=== PATIENT | female | born 1990 | race Hispanic/Latino ===

== ENCOUNTER 2024-08-23 11:08 | Emergency (ER) | payer SELFPAY ==
[~2024-08-23] VITALS: Ht 152.4 cm; Wt 72.0 kg
[2024-08-23] VITALS (8 sets, daily range): BP systolic 95–148; BP diastolic 55–73
[2024-08-23 11:45] LABS: BASO% 0.4 % (0-3); EOS% 1.2 % (0-8); HEMATOCRIT 36.1 % (37.0-47.0); HEMOGLOBIN 12.1 g/dl (12.0-16.0); IMMATURE GRANULOCYTES 0.2 % (0.0-5.0); LYMPH% 20.6 % (15-41); MEAN CORPUSCULAR HGB 28.8 pG CALC (26.0-32.0); MEAN CORPUSCULAR HGB CONC 33.5 g/dL CAL (32.0-36.0); MONO% 5.7 % (2-13); NEUT# 6.75 thou/uL (2.00-7.15); NEUT% 71.9 % (42-76); RED BLOOD COUNT 4.2 mill/uL (4.20-5.60); RED CELL DISTRI WIDTH 13.5 % (11.5-15.5)
[2024-08-23 12:13] LABS: ALBUMIN 3.8 g/dL (3.2-5.0); BILIRUBIN, TOTAL 0.3 mg/dL (0.02-1.3); CREATININE 0.6 mg/dL (0.5-1.0); POTASSIUM 3.5 mmol/l (3.5-5.1)
[2024-08-23] MEDS ORDERED: KETOROLAC TROMETHAMINE 30 MG/ML SDV IV ONE (12:20)
[2024-08-23 12:49] LABS: URINE BILIRUBIN - DIPSTICK Negative (NEGATIVE); URINE BLOOD DIPSTICK Negative (NEGATIVE); URINE GLUCOSE - DIPSTICK Negative (NEGATIVE); URINE KETONE Negative (NEGATIVE); URINE LEUK ESTERASE Negative (NEGATIVE); URINE NITRITE - DIPSTICK Negative (Negative); URINE PH 6.5 (4.5-8.0); URINE PROTEIN - DIPSTICK Negative (NEG-TRACE); URINE UROBILINOGEN - DIPSTICK 0.2 E.U./dL (0.2)
[2024-08-23 12:55] LABS: URINE COLOR Yellow
== END 2024-08-23 15:30 | disposition home or self-care (01) | DRG 833 ==
LOC: ED 11:08
PROVIDERS: Family Medicine
DX: O26.891 Other specified pregnancy related conditions, first trimester (principal); R10.12 Left upper quadrant pain; R10.32 Left lower quadrant pain; Z3A.11 11 weeks gestation of pregnancy